=== PATIENT | female | born 1990 | race Caucasian/White ===

== ENCOUNTER 2016-11-05 12:36 | Inpatient (IN) | payer BC ==
[~2016-11-05] VITALS: Ht 175.3 cm; Wt 80.3 kg
[2016-11-12] MEDS ORDERED: LACTATED RINGER'S 1000 ML IV SCH (13:00)
[2016-11-12] MEDS ORDERED: LACTATED RINGER'S 1000 ML IV ONE (13:00)
[2016-11-12] MEDS ORDERED: CITRIC ACID-SODIUM CITRATE LIQ 30 ML UDC PO SCH (13:00)
[2016-11-12] MEDS ORDERED: ceFAZolin 1,000 MG/NS 100 ML IV SCH ×2 (13:00)
[2016-11-12 13:12] LABS: AUTOMATED NEUTROPHIL # 7.5 TH/MM3 (1.8-7.7); BASOPHIL % 0.3 % (0.0-2.0); EOSINOPHIL # 0.1 TH/MM3 (0-0.4); EOSINOPHIL % 0.6 % (0.0-4.0); HEMATOCRIT 36.6 % (35.0-46.0); HEMO FLAGS DIFF FINAL; LYMPH % 25.7 % (9.0-44.0); LYMPHOCYTE # 2.9 TH/MM3 (1.0-4.8); MEAN CORPUSCULAR HEMOGLOBIN 30.2 PG (27.0-34.0); MEAN CORPUSCULAR HGB CONC 33.2 % (32.0-36.0); MONO % 7.4 % (0.0-8.0); PLATELET COUNT 214 TH/MM3 (150-450); RED BLOOD COUNT 4.02 MIL/MM3 (4.00-5.30); WHITE BLOOD COUNT 11.3 TH/MM3 (4.0-11.0)
[2016-11-12 13:19] LABS: BACTERIA, URINE FEW /hpf; BLOOD, URINE NEG (NEG); GLUCOSE,URINE NEG (NEG); KETONE, URINE 10 mg/dL (NEG); MUCUS URINE FEW /lpf (OCC); NITRITE,URINE NEG (NEG); SQUAMOUS EPITHELIAL CELL URINE 7 /hpf (0-5); TRANSITIONAL EPI CELLS, URINE <1 /hpf; URINE COLOR YELLOW (YELLW/STRAW)
[2016-11-12 13:21] LABS: COMMENT (UR) CULT NOT INDICATED; CULTURE IF INDICATED CULT NOT INDICATED
[2016-11-12] MEDS ORDERED: CALNTAB (13:55)
[2016-11-12] MEDS ORDERED: FERR325T PO (13:57)
[2016-11-12] MEDS ORDERED: OXYTOCIN 10 UNIT/ML AMP ONE (13:58)
--- NOTE | 2016-11-12 14:18 | HHI.HP ---
HPI Chief Complaint for breech presentation. Date Seen: Nov 12, 2016 Travel History International Travel<30 Days: No Contact w/Intl Traveler<30Days: No History of Present Illness HPI Patient is a at 39-3/7 weeks gestation who presents today for scheduled primary for breech presentation. She denies any vaginal bleeding, discharge, gush or leaking of fluid. Positive movement. Patient did have an abnormal 1 hr GTT, but 3hr GTT was wnl. She is Rh negative and received Rhogam at 28 weeks gestation. History Past Medical History Medical History: Denies Significant Hx Obstetric History Obstetric History Past Surgical History Surgical History: No Previous Surgery Family History Family History: Negative Social History Alcohol Use: No Tobacco Use: No Substance Abuse: No Allergies-Medications (Allergen,Severity, Reaction): Coded Allergies: No Known Allergies (Unverified , 11/12/16) Home Meds Reported Medications Ferrous Sulfate 325 Mg [id number] Mg PO DAILY #30 TAB Ref 0 11/12/16 Vitamin (Calna)1 Tab Tab 11/12/16 Review of Systems Except as stated in HPI: all other systems reviewed are Neg General / Constitutional: No: Fever, Chills Eyes: No: Blurred Vision HENT: No: Headaches Cardiovascular: No: Chest Pain or Discomfort, Palpitations Respiratory: No: Short of Breath Gastrointestinal: No: Nausea, Abdominal Pain Genitourinary: No: Dysuria, Hematuria Skin: No Rash Psychiatric: No: Substance Abuse Physical Exam Narrative GENERAL: Well-nourished, well-developed patient. SKIN: Warm and dry. HEAD: Normocephalic and atraumatic. EYES: No scleral icterus. No injection or drainage. ENT: No nasal drainage noted. Mucous membranes pink. Airway patent. NECK: Supple, trachea midline. No JVD. CARDIOVASCULAR: Regular rate and rhythm without murmurs, gallops, or rubs. RESPIRATORY: Breath sounds equal bilaterally. No accessory muscle use. ABDOMEN/GI: Abdomen soft, non-tender, bowel sounds present, no rebound, no guarding Gravid to 39 weeks size GENITOURINARY: External Genitalia: intact and normal in appearance BUS glands: wnl Presentation: breech Membranes: intact Uterine Contractions: q5-8min FHT's: Category: I Baseline: 125 Reactive: + Variability: moderate Decels: none EXTREMITIES: No cyanosis or edema. BACK: Nontender without obvious deformity. No CVA tenderness. NEUROLOGICAL: Awake and alert. Motor and sensory grossly within normal limits. Normal speech. Data Data Vital Signs Reviewed: Yes Orders Lactated Ringer's 1000 Ml Inj (Lr 1000 M (11/12/16 13:00) Lactated Ringer's 1000 Ml Inj (Lr 1000 M (11/12/16 13:00) Citric Acid-Sodium Citrate Liq (Bicitra (11/12/16 13:00) Cefazolin Inj (Ancef Inj) (11/12/16 13:00) Code Status (11/12/16 12:54) Vital Signs (Adult) .ON ADMISSION (11/12/16 12:54) Activity Oob Ad Karin (11/12/16 12:54) ^ Heart (11/12/16 12:54) Urinary Catheter Management EDITH.Q8H (11/12/16 12:54) ^ Preps (11/12/16 12:54) Scd / Fahad / Foot Pump EDITH.QSHIFT (11/12/16 12:54) ^ Ultrasound For Locatio (11/12/16 12:54) Diet Npo (11/12/16 Lunch) Type And Screen (11/12/16 12:54) Complete Blood Count With Diff (11/12/16 12:54) Urinalysis - C+S If Indicated (11/12/16 12:54) Specimen To Be Collected PRN (11/12/16 12:54) Oxytocin Inj (Pitocin Inj) (11/12/16 13:58) Labs Laboratory Tests Test 11/12/16 12:25 White Blood Count 11.3 Red Blood Count 4.02 Hemoglobin 12.2 Hematocrit 36.6 Mean Corpuscular Volume 91.0 Mean Corpuscular Hemoglobin 30.2 Mean Corpuscular Hemoglobin 33.2 Concent Red Cell Distribution Width 14.0 Platelet Count 214 Mean Platelet Volume 11.2 Neutrophils (%) (Auto) 66.0 Lymphocytes (%) (Auto) 25.7 Monocytes (%) (Auto) 7.4 Eosinophils (%) (Auto) 0.6 Basophils (%) (Auto) 0.3 Neutrophils # (Auto) 7.5 Lymphocytes # (Auto) 2.9 Monocytes # (Auto) 0.8 Eosinophils # (Auto) 0.1 Basophils # (Auto) 0.0 CBC Comment DIFF FINAL Differential Comment Urine Color YELLOW Urine Turbidity HAZY Urine pH 6.0 Urine Specific [place] 1.021 Urine Protein 30 Urine Glucose (UA) NEG Urine Ketones 10 Urine Occult Blood NEG Urine Nitrite NEG Urine Bilirubin NEG Urine Urobilinogen LESS THAN 2.0 Urine Leukocyte Esterase LARGE Urine RBC 1 Urine WBC 7 Urine Squamous Epithelial 7 Cells Urine Transitional Epithelial <1 Cells Urine Bacteria FEW Urine Mucus FEW Microscopic Urinalysis Comment CULT NOT INDICATED Blood Type A NEGATIVE Antibody Screen NEGATIVE Assessment/Plan Assessment and Plan 26 year old at 39-3/7 weeks gestation. 1. IUP- Category I tracing, reassuring, continue routine obstetric care. 2. Breech presentation- primary scheduled today, breech presentation confirmed with bedside US on admission. 3. GBS negative. 4. Rh negative. sdw Vita Oden MD R2 Nov 12, 2016 14:17
[2016-11-12 16:14] VITALS: BP 116/77; PULSE 100; RESP 18; TEMP 98.1; O2SAT 96
[2016-11-12] MEDS ORDERED: ZOLPIDEM TARTRATE 5 MG TAB PO PRN (16:15)
[2016-11-12] MEDS ORDERED: OXYTOCIN 30 UNITS-500ML PREMIX 500 ML IV ONE (16:15)
[2016-11-12] MEDS ORDERED: SIMETHICONE 80 MG CHEWABLE TAB PO PRN (16:15)
[2016-11-12] MEDS ORDERED: ACETAMINOPHEN 325 MG TAB PO PRN (16:15)
[2016-11-12] MEDS ORDERED: oxyCODONE/ACETAMINOPHEN 5 MG/325 MG TAB PO PRN (16:15)
[2016-11-12] MEDS ORDERED: SODIUM CHLORIDE 0.9% FLUSH 5 ML FLUSH IV PRN (16:15)
[2016-11-12] MEDS ORDERED: ONDANSETRON HCL 4 MG/2 ML VIAL IV PUSH PRN (16:15)
[2016-11-12] MEDS ORDERED: MORPHINE SULFATE PF 5 MG/10 ML VIAL ONE (16:17)
[2016-11-12] MEDS ORDERED: LACTATED RINGER'S 1000 ML INJ 1,000 ML IV ONE (16:24)
[2016-11-12 16:30] VITALS: BP 120/78
[2016-11-12] MEDS ORDERED: OXYTOCIN 30 UNITS-500ML PREMIX 500 ML ONE (16:32)
[2016-11-12 16:47] VITALS: BP 115/80; PULSE 64
[2016-11-12 16:48] VITALS: RESP 18; O2SAT 99
[2016-11-12 17:01] VITALS: BP 113/81; PULSE 89; RESP 18; O2SAT 99
[2016-11-12 17:12] VITALS: BP 120/82; PULSE 71; RESP 18; TEMP 98; O2SAT 100
[2016-11-12] MEDS ORDERED: LACTATED RINGER'S 1000 ML INJ 1,000 ML IV SCH (21:00)
[2016-11-12] MEDS ORDERED: SODIUM CHLORIDE 0.9% FLUSH 5 ML FLUSH IV SCH (21:00)
[2016-11-13] MEDS ORDERED: OXYTOCIN 30 UNITS-500ML PREMIX 500 ML IV PRN (02:15)
[2016-11-13] MEDS: IBUPROFEN 600 MG TAB PO PRN ×3 (04:23→23:48)
[2016-11-13] MEDS: DOCUSATE SODIUM 50 MG/SENNA 8.6 MG TAB PO PRN ×2 (04:24→16:16)
[2016-11-13 05:55] LABS: AUTOMATED NEUTROPHIL # 8.3 TH/MM3 (1.8-7.7); BASOPHIL % 0.2 % (0.0-2.0); EOSINOPHIL % 0.3 % (0.0-4.0); HEMO FLAGS DIFF FINAL; LYMPH % 19.7 % (9.0-44.0); LYMPHOCYTE # 2.3 TH/MM3 (1.0-4.8); MEAN CELL VOLUME 89.8 FL (80.0-100.0); MEAN CORPUSCULAR HEMOGLOBIN 30.9 PG (27.0-34.0); MEAN CORPUSCULAR HGB CONC 34.4 % (32.0-36.0); MONO % 7.9 % (0.0-8.0); NEUT % 71.9 % (16.0-70.0); PLATELET COUNT 180 TH/MM3 (150-450); RED BLOOD COUNT 3.12 MIL/MM3 (4.00-5.30); RED CELL DISTRIBUTION WIDTH 14.1 % (11.6-17.2); WHITE BLOOD COUNT 11.5 TH/MM3 (4.0-11.0)
--- NOTE | 2016-11-13 08:27 | HHI.OB ---
Subjective Remarks Patient is a 26 year old POD#1 s/p primary for breech presentation. She is feeling well overall this morning. She has soreness with changing position, but has been able to get up and ambulate around the room. Her Hernandes catheter was removed earlier this morning and she is going to try voiding on her own. Vitals are stable, she remains afebrile. She denies any chest pain, shortness of breath, light-headedness, fever, chills, leg pain, nausea or vomiting. Objective Vitals/I&O Vital Signs Date Time Temp Pulse Resp B/P Pulse Ox O2 Delivery O2 Flow Rate FiO2 11/12/16 17:12 98.0 71 18 120/82 100 11/12/16 17:01 89 18 113/81 99 11/12/16 16:48 18 99 11/12/16 16:47 64 11/12/16 16:47 115/80 11/12/16 16:14 98.1 100 18 116/77 96 Result Diagram: 11/13/16 0545 Objective Remarks GENERAL: Well-nourished, well-developed patient. CARDIOVASCULAR: Regular rate and rhythm without murmurs, gallops, or rubs. RESPIRATORY: Breath sounds equal bilaterally. No accessory muscle use. ABDOMEN/GI: Abdomen soft, non-tender, bowel sounds present. Incision: Clean, dry and intact. Fundus: Firm, non-tender at umbilicus. GENITOURINARY: Light to moderate bleeding. EXTREMITIES: No cyanosis or edema, non-tender, without signs of DVT. Medications and IVs Current Medications Medications (Trade) Dose Ordered Sig/Ari Route Start Time Stop Time Status Last Admin (Lr 1000 ml Inj) 1,000 ml @ 100 mls/hr Q10H IV 11/12/16 21:00 11/13/16 16:59 (NS Flush) 2 ml BID IV 11/12/16 21:00 (NS Flush) 2 ml UNSCH PRN IV 11/12/16 16:15 11/12/16 22:01 (Mylicon Chew) 80 mg QID PRN PO 11/12/16 16:15 (Tylenol) 650 mg Q6H PRN PO 11/12/16 16:15 (Motrin) 600 mg Q6H PRN PO 11/12/16 16:15 11/13/16 04:23 (Percocet 5-325 Mg) 1 tab Q4H PRN PO 11/12/16 16:15 (Percocet 5-325 Mg) 2 tab Q4H PRN PO 11/12/16 16:15 (Linh-Colace) 2 tab Q12H PRN PO 11/12/16 16:15 11/13/16 04:24 (Ambien) 5 mg HS PRN PO 11/12/16 16:15 (M-M-R Ii Inj) 0.5 ml ONCE ONCE SQ 11/13/16 16:00 11/13/16 16:01 (Boostrix Inj) 0.5 ml ONCE ONCE IM 11/13/16 16:00 11/13/16 16:01 (Zofran Inj) 4 mg Q6H PRN IV PUSH 11/12/16 16:15 11/12/16 22:00 Assessment/Plan Assessment and Plan 26 year old POD #1 s/p primary for breech presentation. - Continue routine care. - Percocet and Motrin PRN pain. - Hgb dropped from 12.2 to 9.6 today, patient is asymptomatic. - Encouraged OOB. Advised pelvic rest for 6 wks. Will need a f/u appt. in 1 wk for incision check. - Rh negative, Infant negative as well, Rhogam not indicated dw Vita Oden MD R2 Nov 13, 2016 08:27
[2016-11-13] MEDS ORDERED: MEASLES, MUMPS, RUBELLA VACCINE 0.5 ML VIAL SQ ONE (16:00)
[2016-11-13] MEDS ORDERED: DIPHTH/TETANUS/ACEL PERTUSSIS (BOOSTER) 0.5 ML VIAL/PFS IM ONE (16:00)
[2016-11-13] MEDS: oxyCODONE/ACETAMINOPHEN 5 MG/325 MG TAB PO PRN ×2 (16:16→20:47)
[2016-11-14] MEDS ORDERED: IBUP-232 PO (08:42)
[2016-11-14] MEDS ORDERED: OXYC1TAB63 PO (08:42)
--- NOTE | 2016-11-14 08:57 | HHI.OB ---
Subjective Remarks Patient is a 26 year old POD#2 s/p primary for breech presentation. She is feeling well this morning. She notes minimal abdominal soreness and states that she has been able to ambulate, void and stool without difficulty. Vitals are stable, she remains afebrile. She denies any chest pain , shortness of breath, light-headedness, fever, chills, leg pain, nausea or vomiting. Objective Result Diagram: 11/13/16 1323 Objective Remarks GENERAL: Well-nourished, well-developed patient. CARDIOVASCULAR: Regular rate and rhythm without murmurs, gallops, or rubs. RESPIRATORY: Breath sounds equal bilaterally. No accessory muscle use. ABDOMEN/GI: Abdomen soft, non-tender, bowel sounds present. Incision: Clean, dry and intact. Fundus: Firm, non-tender at umbilicus. GENITOURINARY: Light to moderate bleeding. EXTREMITIES: No cyanosis or edema, non-tender, without signs of DVT. Medications and IVs Current Medications Medications (Trade) Dose Ordered Sig/Ari Route Start Time Stop Time Status Last Admin (NS Flush) 2 ml BID IV 11/12/16 21:00 (NS Flush) 2 ml UNSCH PRN IV 11/12/16 16:15 11/12/16 22:01 (Mylicon Chew) 80 mg QID PRN PO 11/12/16 16:15 (Tylenol) 650 mg Q6H PRN PO 11/12/16 16:15 (Motrin) 600 mg Q6H PRN PO 11/12/16 16:15 11/13/16 23:48 (Percocet 5-325 Mg) 1 tab Q4H PRN PO 11/12/16 16:15 11/13/16 20:47 (Percocet 5-325 Mg) 2 tab Q4H PRN PO 11/12/16 16:15 (Linh-Colace) 2 tab Q12H PRN PO 11/12/16 16:15 11/13/16 16:16 (Ambien) 5 mg HS PRN PO 11/12/16 16:15 (Zofran Inj) 4 mg Q6H PRN IV PUSH 11/12/16 16:15 11/12/16 22:00 Assessment/Plan Assessment and Plan 26 year old POD #2 s/p primary for breech presentation. - Continue routine care. - Percocet and Motrin PRN pain. - post-op Hgb 9.6, patient remains asymptomatic. - Encouraged OOB. Advised pelvic rest for 6 wks. Will need a f/u appt. in 1 wk for incision check. - Rh negative, Infant negative as well, Rhogam not indicated - Re: control, options discussed this morning, patient would like to consider her options. Vita Barahona Dr., MD R2 Nov 14, 2016 08:57
[2016-11-14] MEDS: IBUPROFEN 600 MG TAB PO PRN ×2 (09:59→17:37)
[2016-11-14] MEDS ORDERED: diphenhydrAMINE HCL 25 MG CAP PO PRN (20:15)
[2016-11-15] MEDS: IBUPROFEN 600 MG TAB PO PRN (00:04)
[2016-11-15 08:00] VITALS: BP 131/76; PULSE 91; RESP 18; TEMP 98.6
--- NOTE | 2016-11-15 11:47 | HHI.OB ---
Subjective Post Operative Day: 3 Objective Vitals/I&O Vital Signs Date Time Temp Pulse Resp B/P Pulse Ox O2 Delivery O2 Flow Rate FiO2 11/15/16 08:00 98.6 91 18 131/76 Result Diagram: 11/13/16 0545 Objective Remarks GENERAL: Well-nourished, well-developed patient. CARDIOVASCULAR: Regular rate and rhythm without murmurs, gallops, or rubs. RESPIRATORY: Breath sounds equal bilaterally. No accessory muscle use. ABDOMEN/GI: Abdomen soft, non-tender, bowel sounds present. Incision: Clean, dry and intact, steri strips dry, some bruising under incision Fundus: Firm, non-tender at umbilicus. GENITOURINARY: Light to moderate bleeding. EXTREMITIES: No cyanosis or edema, non-tender, without signs of DVT. Medications and IVs Current Medications Medications (Trade) Dose Ordered Sig/Ari Route Start Time Stop Time Status Last Admin (NS Flush) 2 ml BID IV 11/12/16 21:00 (NS Flush) 2 ml UNSCH PRN IV 11/12/16 16:15 11/12/16 22:01 (Mylicon Chew) 80 mg QID PRN PO 11/12/16 16:15 (Tylenol) 650 mg Q6H PRN PO 11/12/16 16:15 (Motrin) 600 mg Q6H PRN PO 11/12/16 16:15 11/15/16 00:04 (Percocet 5-325 Mg) 1 tab Q4H PRN PO 11/12/16 16:15 11/13/16 20:47 (Percocet 5-325 Mg) 2 tab Q4H PRN PO 11/12/16 16:15 (Linh-Colace) 2 tab Q12H PRN PO 11/12/16 16:15 11/13/16 16:16 (Ambien) 5 mg HS PRN PO 11/12/16 16:15 (Zofran Inj) 4 mg Q6H PRN IV PUSH 11/12/16 16:15 11/12/16 22:00 (Benadryl) 25 mg Q4H PRN PO 11/14/16 20:15 11/14/16 20:23 Assessment/Plan Problem List: (1) Anemia Plan: pp daily iron (2) S/P primary low transverse Plan: routine Assessment and Plan 26 year old POD #3 s/p primary for breech presentation. pt doing well - Continue routine care. - pain managed well with oral pain medication - bonding with Discharge Planning dc home today Melanie Salvador Nov 15, 2016 11:47
--- NOTE | 2016-11-15 11:50 | HHI.DS ---
Admission Date Nov 12, 2016 at 12:02 Discharge Date: Nov 15, 2016 Admitting Diagnosis term breech presentation Diagnosis: (1) S/P primary low transverse Diagnosis: Principal (2) Anemia Diagnosis: Secondary Delivery Date: Nov 12, 2016 : Primary Reason: breech Infant: Male Brief History Patient is a at 39-3/7 weeks gestation who presents today for scheduled primary for breech presentation. She denies any vaginal bleeding, discharge, gush or leaking of fluid. Positive movement. Patient did have an abnormal 1 hr GTT, but 3hr GTT was wnl. She is Rh negative and received Rhogam at 28 weeks gestation. Hospital Course routine Pt Condition on Discharge: Good Discharge Disposition: Discharge Home Discharge Instructions Diet Instructions: As Tolerated, No Restrictions Additional Diet Instructions: Drink at least 8 - 16 oz bottles of water a day Activities You Can Perform: Shower Only-No Bath Activities to Avoid: Prolonged Standing, Strenuous Activity, Sexual Activity Additional Activity Instruc.: No driving until off pain medications Do not lift anything heavier than your baby in an infant carrier Follow up Referrals: [employer] - 1 Week @ [facility] New Medications: Ibuprofen (Ibuprofen) 600 Mg Tab 600 MG PO Q6H Pain Management #30 TAB Oxycodone-Acetaminophen (Oxycodone-Acetaminophen) 5-325 mg Tab 1 TAB PO Q4H moderate pain #30 TAB Continued Medications: Vitamin (Calna) 1 Tab Tab Discontinued Medications: Ferrous Sulfate (Ferrous Sulfate) 325 Mg Tab 325 MG PO DAILY Nutritional Supplement #30 Ref 0 TAB Melanie Salvador Nov 15, 2016 11:50
--- NOTE | 2016-11-15 11:54 | HHI.DCPOC ---
Discharge Care Plan Diagnosis: (1) S/P primary low transverse (2) Anemia Your Health Problems Are: delivery Report Symptoms to Your Doctor -Temperate above 100.5 degrees -Redness, of incision or excessive or foul smelling drainage -Unusual pain or calf pain -Increased vaginal bleeding -Painful or difficulty urinating -Feelings of extreme sadness or anxiety after 2 weeks Goals to Promote Your Health * To prevent worsening of your condition and complications * To maintain your health at the optimal level Directions to Meet Your Goals Take your medications as prescribed Follow your dietary instruction Follow activity as directed Ensure plenty of rest for recovery Drink fluids for hydration Keep your appointments as scheduled Take your immunizations and boosters as scheduled If your symptoms worsen call your PCP, if no PCP go to Urgent Care Center or Emergency Room Smoking is Dangerous to Your Health. Avoid second hand smoke Call the 24-hour crisis hotline for domestic abuse at Melanie Salvador Nov 15, 2016 11:54
--- NOTE | 2016-11-15 17:55 | MP ---
cc: Mariaelena NICOLAS MD DATE OF SURGERY: 11/12/2016 PREOPERATIVE DIAGNOSIS: 1. Intrauterine at 39+ weeks 2. Breech presentation. POSTOPERATIVE DIAGNOSIS 1. Intrauterine at 39+ weeks 2. Breech presentation. PROCEDURE: Primary low transverse section. ANESTHESIA: Spinal. SURGEON Eliana Nicolas MD. COSURGEON: MD Mariely R2 FINDINGS: Normal uterus, tubes and ovaries. Viable male with good 's. COMPLICATIONS None. COUNTS: Counts correct. ESTIMATED BLOOD LOSS: Estimated blood loss was 600 cc. FLUIDS: Crystalloids. The patient tolerated the procedure well and recovery room in good condition. PROCEDURE IN DETAIL Under an adequate level of anesthesia, she was prepped and draped for abdominal surgery. A Pfannenstiel incision was made and carried down to the fascia. The fascia was taken off the rectus muscle by blunt and sharp dissection. The rectus muscles were spread bluntly and the peritoneum was entered under direct vision without difficulty. The incision was extended with care to avoid the urinary bladder. A bladder blade was placed and a bladder flap created in the usual fashion. The uterine incision was made in a transverse manner along the lower uterine segment which was not well-developed. It was taken down in the midline until the intrauterine cavity was entered. A large amount of clear fluid was noted. The breech was grasped and delivered without difficulty. The legs were delivered and the thorax was delivered. The arms were reduced bilaterally without difficulty. With gentle fundal pressure the vertex was delivered without difficulty and the hypopharynx and nasopharynx were suctioned. The cord doubly clamped and cut and the handed to the resuscitation team present. The placenta was delivered manually. The uterus was curettaged twice with a wet lap and irrigated with a large amount of fluid. The uterine incision was then repaired with 2-0 Vicryl in a running locking fashion, with the second layer imbricating the first. Hemostasis was excellent. The cul-de-sac and gutters were cleaned of blood and debris. The uterus was delivered back into the abdomen. The rectus muscles were reapproximated with 0 Vicryl in interrupted fashion. The fascia was repaired from lateral to midline with 0 Vicryl and the Subcu was repaired with 3-0 Vicryl. The skin was repaired with a 4-0 Vicryl in a subcuticular manner. The wound was sterilely dressed. She tolerated the procedure well and went to the recovery room in satisfactory condition. R. MD FLO Man/janay /9:56 PM /5:47 PM
== END 2016-11-15 12:55 | disposition home or self-care (01) | DRG 766 ==
LOC: H2EB 11-12 12:02 → H1EA 11-12 17:16
PROVIDERS: ADMIT Obstetrics & Gynecology; ATTEND Obstetrics & Gynecology
PROC: 10D00Z1 Extraction of Products of Conception, Low, Open Approach (ICD-10-PCS; principal; 2016-11-12)
DX: O32.1XX0 Maternal care for breech presentation, not applicable or unspecified (principal); D64.9 Anemia, unspecified; O99.02 Anemia complicating childbirth; Z3A.39 39 weeks gestation of pregnancy; Z37.0 Single live birth
CPT/HCPCS: 59025; 81001; 85025; 86850; 86900; 86901; 90707; 90715; J0690; J2274; J2405; J2590; J7120

== ENCOUNTER 2018-03-05 14:40 | Inpatient (IN) | payer BC ==
[~2018-03-05] VITALS: Ht 175.3 cm; Wt 78.9 kg
[~2018-03-05 14:40] MED LIST: CALNTAB; IBUP-232 PO; OXYC1TAB63 PO
[2018-03-05] MEDS ORDERED: LACTATED RINGER'S 1000 ML INJ 1,000 ML IV ONE (15:15)
--- NOTE | 2018-03-05 15:56 | HHI.HP ---
HPI Chief Complaint Repeat Date Seen: March 05, 2018 Travel History International Travel<30 Days: No Contact w/Intl Traveler<30Days: No History of Present Illness HPI Patient is a 27 year old at 39-1/7 weeks gestation who presents today for repeat . She denies any vaginal bleeding or discharge. No gush or leaking of fluid. She is not feeling any contractions. Positive movement. No complications with . History Past Medical History Medical History: Denies Significant Hx Obstetric History Obstetric History for breech presentation in 2017 Past Surgical History Narrative Surgical Cholecystectomy Ear Surgery Family History Family History: Negative Social History Alcohol Use: No Tobacco Use: No Substance Abuse: No Allergies-Medications (Allergen,Severity, Reaction): Coded Allergies: No Known Allergies (Verified Allergy, Unknown, 03/05/18) Home Meds Discontinued Reported Medications Vitamin (Calna) 1 Tab Tab 11/12/16 Discontinued Scripts Oxycodone-Acetaminophen (Oxycodone-Acetaminophen) 5-325 mg Tab, 1 TAB PO Q4H for moderate pain, #30 TAB Prov:Mariaelena Nicolas MD 11/14/16 Ibuprofen (Ibuprofen) 600 Mg Tab, 600 MG PO Q6H for Pain Management, #30 TAB Prov:Mariaelena Nicolas MD 11/14/16 Review of Systems Except as stated in HPI: all other systems reviewed are Neg General / Constitutional: No: Fever, Chills Eyes: No: Visual changes HENT: No: Headaches Cardiovascular: No: Chest Pain or Discomfort Respiratory: No: Short of Breath Gastrointestinal: No: Nausea, Abdominal Pain Genitourinary: No: Pelvic Pain, Discharge, Vaginal Bleeding Musculoskeletal: No: Edema Neurologic: No: Headache Psychiatric: No: Substance Abuse Physical Exam Narrative GENERAL: Well-nourished, well-developed patient. SKIN: Warm and dry. HEAD: Normocephalic and atraumatic. EYES: No scleral icterus. No injection or drainage. ENT: No nasal drainage noted. Mucous membranes pink. Airway patent. NECK: Supple, trachea midline. No JVD. CARDIOVASCULAR: Regular rate and rhythm without murmurs, gallops, or rubs. RESPIRATORY: Breath sounds equal bilaterally. No accessory muscle use. ABDOMEN/GI: Abdomen soft, non-tender, bowel sounds present, no rebound, no guarding Gravid to 39 weeks size GENITOURINARY: Membranes: intact Uterine Contractions: q3-4min FHT's: Category: I Baseline: 140 Reactive: + Variability: moderate Decels: none EXTREMITIES: No cyanosis or edema. BACK: Nontender without obvious deformity. NEUROLOGICAL: Awake and alert. Motor and sensory grossly within normal limits. Normal speech. Caprini VTE Risk Assessment Caprini VTE Risk Assessment: No/Low Risk (score <= 1) Caprini Risk Assessment Model Point Value = 1 Point Value = 2 Point Value = 3 Point Value = 5 Age 41-60 Minor surgery BMI > 25 kg/m2 Swollen legs Varicose veins or History of unexplained or recurrent spontaneous Oral contraceptives or hormone replacement Sepsis (< 1 month) Serious lung disease, including pneumonia (< 1 month) Abnormal pulmonary function Acute myocardial infarction Congestive heart failure (< 1 month) History of inflammatory bowel disease Medical patient at bed rest Age 61-74 Arthroscopic surgery Major open surgery (> 45 min) Laparoscopic surgery (> 45 min) Malignancy Confined to bed (> 72 hours) Immobilizing plaster cast Central venous access Age >= 75 History of VTE Family history of VTE Factor V Leiden Prothrombin [id number] Lupus anticoagulant Anticardiolipin antibodies Elevated serum homocysteine Heparin-induced thrombocytopenia Other congenital or acquired thrombophilia Stroke (< 1 month) Elective arthroplasty Hip, pelvis, or leg fracture Acute spinal cord injury (< 1 month) Prophylaxis Regimen Total Risk Factor Score Risk Level Prophylaxis Regimen 0-1 Low Early ambulation 2 Moderate Order ONE of the following: *Sequential Compression Device (SCD) *Heparin 5000 units SQ BID 3-4 Higher Order ONE of the following medications: *Heparin 5000 units SQ TID *Enoxaparin/Lovenox 40 mg SQ daily (WT < 150 kg, CrCl > 30 mL/min) *Enoxaparin/Lovenox 30 mg SQ daily (WT < 150 kg, CrCl > 10-29 mL/min) *Enoxaparin/Lovenox 30 mg SQ BID (WT < 150 kg, CrCl > 30 mL/min) AND/OR *Sequential Compression Device (SCD) 5 or more Highest Order ONE of the following medications: *Heparin 5000 units SQ TID (Preferred with Epidurals) *Enoxaparin/Lovenox 40 mg SQ daily (WT < 150 kg, CrCl > 30 mL/min) *Enoxaparin/Lovenox 30 mg SQ daily (WT < 150 kg, CrCl > 10-29 mL/min) *Enoxaparin/Lovenox 30 mg SQ BID (WT < 150 kg, CrCl > 30 mL/min) AND *Sequential Compression Device (SCD) Data Data Vital Signs Reviewed: Yes Orders Orders Admit To Inpatient (03/05/18 ) Code Status (03/05/18 15:07) Vital Signs (Adult) .ON ADMISSION (03/05/18 15:07) Activity Oob Ad Karin (03/05/18 15:07) Heart (03/05/18 15:07) Urinary Catheter Management EDITH.Q8H (03/05/18 15:07) ^ Preps (03/05/18 15:07) Scd / Fahad / Foot Pump EDITH.QSHIFT (03/05/18 15:07) ^ Ultrasound For Locatio (03/05/18 15:07) Diet Npo (03/05/18 Dinner) Type And Screen (03/05/18 15:07) Complete Blood Count With Diff (03/05/18 15:07) Urinalysis - C+S If Indicated (03/05/18 15:07) Drug Screen, Random Urine (03/05/18 15:07) Lactated Ringer's 1000 Ml Inj (Lr 1000 M (03/05/18 15:15) Lactated Ringer's 1000 Ml Inj (Lr 1000 M (03/05/18 15:45) Cefazolin 2 Gm Premix (Ancef 2 Gm Premix (03/05/18 16:15) Citric Acid-Sodium Citrate Liq (Bicitra (03/05/18 16:45) Group B Strep: Negative Assessment/Plan Assessment and Plan 27 year old at 39-1/7 weeks gestation. 1. IUP- Category I tracing, reassuring. 2. Repeat . 3. GBS negative. Vita Barahona Dr., MD R3 March 05, 2018 15:56
[2018-03-05 15:59] LABS: AUTOMATED NEUTROPHIL # 6.9 TH/MM3 (1.8-7.7); BASOPHIL % 0.2 % (0.0-2.0); EOSINOPHIL # 0.1 TH/MM3 (0-0.4); EOSINOPHIL % 0.8 % (0.0-4.0); HEMATOCRIT 35.8 % (35.0-46.0); LYMPH % 22.7 % (9.0-44.0); LYMPHOCYTE # 2.3 TH/MM3 (1.0-4.8); MEAN CELL VOLUME 89.9 FL (80.0-100.0); MEAN CORPUSCULAR HEMOGLOBIN 30.1 PG (27.0-34.0); MEAN CORPUSCULAR HGB CONC 33.5 % (32.0-36.0); MEAN PLATELET VOLUME 9.7 FL (7.0-11.0); MONO % 8.1 % (0.0-8.0); MONOCYTE # 0.8 TH/MM3 (0-0.9); NEUT % 68.2 % (16.0-70.0); PLATELET COUNT 282 TH/MM3 (150-450); RED BLOOD COUNT 3.98 MIL/MM3 (4.00-5.30); RED CELL DISTRIBUTION WIDTH 14.2 % (11.6-17.2); WHITE BLOOD COUNT 10.1 TH/MM3 (4.0-11.0)
[2018-03-05] MEDS ORDERED: LACTATED RINGER'S 1000 ML INJ 1,000 ML IV SCH ×2 (16:00→22:48)
[2018-03-05 16:13] LABS: BACTERIA, URINE RARE /hpf; BILIRUBIN, URINE NEG (NEG); BLOOD, URINE NEG (NEG); GLUCOSE,URINE NEG (NEG); KETONE, URINE 10 mg/dL (NEG); MUCUS URINE FEW /lpf (OCC); NITRITE,URINE NEG (NEG); SQUAMOUS EPITHELIAL CELL URINE 1 /hpf (0-5); URINE COLOR YELLOW (YELLW/STRAW); URINE LEUKOCYTE ESTERASE NEG (NEG)
[2018-03-05] MEDS ORDERED: ceFAZolin 2 GM PREMIX 50 ML IV SCH (16:15)
[2018-03-05] MEDS ORDERED: MORPHINE SULFATE PF 5 MG/10 ML VIAL ONE (16:41)
[2018-03-05] MEDS ORDERED: CITRIC ACID-SODIUM CITRATE LIQ 30 ML UDC PO SCH (16:45)
[2018-03-05] MEDS ORDERED: DOCUSATE SODIUM 50 MG/SENNA 8.6 MG TAB PO PRN (18:00)
[2018-03-05] MEDS ORDERED: ONDANSETRON HCL 4 MG/2 ML VIAL IV PUSH PRN (18:00)
[2018-03-05] MEDS ORDERED: ACETAMINOPHEN 325 MG TAB PO PRN (18:00)
[2018-03-05] MEDS ORDERED: ZOLPIDEM TARTRATE 5 MG TAB PO PRN (18:00)
[2018-03-05] MEDS ORDERED: CEFAZOLIN INJ 2,000 MG in SODIUM CHLORIDE 0.9% INJ 100 ML IV SCH (18:00)
[2018-03-05] MEDS ORDERED: ONDANSETRON ODT 4 MG TAB PO PRN (18:00)
[2018-03-05] MEDS ORDERED: oxyCODONE/ACETAMINOPHEN 5 MG/325 MG TAB PO PRN ×2 (18:00)
[2018-03-05] MEDS ORDERED: OXYTOCIN 30 UNITS-500ML PREMIX 500 ML IV ONE (18:00)
[2018-03-05] MEDS ORDERED: SIMETHICONE 80 MG CHEWABLE TAB PO PRN (18:00)
[2018-03-05] MEDS ORDERED: SODIUM CHLORIDE 0.9% FLUSH 10 ML FLUSH IV FLUSH PRN (18:00)
[2018-03-05] MEDS: IBUPROFEN 600 MG TAB PO PRN (20:01)
[2018-03-05 20:34] VITALS: BP 127/77; PULSE 79; RESP 18; TEMP 98.3
[2018-03-05] MEDS ORDERED: SODIUM CHLORIDE 0.9% FLUSH 10 ML FLUSH IV FLUSH SCH (21:00)
[2018-03-05] MEDS ORDERED: OXYTOCIN 30 UNITS-500ML PREMIX 500 ML IV PRN (23:00)
[2018-03-06 00:01] VITALS: BP 117/66; PULSE 73; RESP 17; TEMP 98.6
[2018-03-06] MEDS: ceFAZolin 2 GM/DEX PREMIX 50 ML IV SCH ×2 (00:45→08:54)
[2018-03-06 04:02] VITALS: BP 98/56; PULSE 81; RESP 18; TEMP 99
[2018-03-06] MEDS: IBUPROFEN 600 MG TAB PO PRN ×3 (05:13→18:53)
[2018-03-06 05:59] LABS: AUTOMATED NEUTROPHIL # 10.4 TH/MM3 (1.8-7.7); BASOPHIL % 0.2 % (0.0-2.0); EOSINOPHIL % 0.1 % (0.0-4.0); HEMATOCRIT 31.5 % (35.0-46.0); HEMOGLOBIN 10.7 GM/DL (11.6-15.3); LYMPH % 16.9 % (9.0-44.0); LYMPHOCYTE # 2.4 TH/MM3 (1.0-4.8); MEAN CELL VOLUME 91.5 FL (80.0-100.0); MEAN CORPUSCULAR HEMOGLOBIN 31.2 PG (27.0-34.0); MONO % 8.1 % (0.0-8.0); MONOCYTE # 1.1 TH/MM3 (0-0.9); NEUT % 74.7 % (16.0-70.0); PLATELET COUNT 221 TH/MM3 (150-450); RED BLOOD COUNT 3.44 MIL/MM3 (4.00-5.30); RED CELL DISTRIBUTION WIDTH 14.1 % (11.6-17.2)
[2018-03-06] MEDS ORDERED: OXYC1TAB63 PO (08:21)
[2018-03-06] MEDS ORDERED: IBUP-232 PO (08:21)
--- NOTE | 2018-03-06 08:55 | HHI.DCPOC ---
Discharge Care Plan Diagnosis: (1) Status post repeat low transverse section (2) Anemia Your Health Problems Are: delivery Additional Problems take daily oral iron once you are no longer taking pain medication Report Symptoms to Your Doctor -Temperature above 100.5 degrees -Redness, of incision or excessive or foul smelling drainage -Unusual pain or calf pain -Increased vaginal bleeding -Painful or difficulty urinating -Feelings of extreme sadness or anxiety after 2 weeks Goals to Promote Your Health * To prevent worsening of your condition and complications * To maintain your health at the optimal level Directions to Meet Your Goals Take your medications as prescribed Follow your dietary instruction Follow activity as directed Ensure plenty of rest for recovery Drink fluids for hydration Keep your appointments as scheduled Take your immunizations and boosters as scheduled If your symptoms worsen call your PCP, if no PCP go to Urgent Care Center or Emergency Room Smoking is Dangerous to Your Health. Avoid second hand smoke Call the 24-hour crisis hotline for domestic abuse at Melanie Salvador March 06, 2018 08:55
--- NOTE | 2018-03-06 09:09 | HHI.OB ---
Subjective Post Operative Day: 1 Objective Vitals/I&O Vital Signs Date Time Temp Pulse Resp B/P (MAP) Pulse Ox O2 Delivery O2 Flow Rate FiO2 03/06/18 04:02 99.0 81 18 98/56 (70) 03/06/18 00:01 98.6 73 17 117/66 (83) 03/05/18 20:34 98.3 79 18 127/77 (94) Result Diagram: 03/06/18 0505 Objective Remarks GENERAL: Well-nourished, well-developed patient. CARDIOVASCULAR: Regular rate and rhythm without murmurs, gallops, or rubs. RESPIRATORY: Breath sounds equal bilaterally. No accessory muscle use. ABDOMEN/GI: Abdomen soft, non-tender, bowel sounds present. Incision: dressing, Clean, dry and intact. Fundus: Firm, non-tender at umbilicus. GENITOURINARY: Light to moderate bleeding. EXTREMITIES: No cyanosis or edema, non-tender, without signs of DVT. Medications and IVs Current Medications Medications (Trade) Dose Ordered Sig/Ari Route Start Time Stop Time Status Last Admin Lactated Ringer's 1,000 ml @ 100 mls/hr Q10H IV 03/05/18 22:48 03/06/18 18:47 03/06/18 00:49 Oxytocin 500 ml @ 100 mls/hr UNSCH X1 PRN IV 03/05/18 23:00 03/06/18 22:59 (NS Flush) 2 ml BID IV FLUSH 03/05/18 21:00 (NS Flush) 2 ml UNSCH PRN IV FLUSH 03/05/18 18:00 (Mylicon Chew) 80 mg QID PRN PO 03/05/18 18:00 (Tylenol) 650 mg Q6H PRN PO 03/05/18 18:00 (Motrin) 600 mg Q6H PRN PO 03/05/18 18:00 03/06/18 05:13 (Percocet 5-325 Mg) 1 tab Q4H PRN PO 03/05/18 18:00 (Percocet 5-325 Mg) 2 tab Q4H PRN PO 03/05/18 18:00 (Linh-Colace) 2 tab Q12H PRN PO 03/05/18 18:00 (Ambien) 5 mg HS PRN PO 03/05/18 18:00 (M-M-R Ii Inj) 0.5 ml ONCE ONCE SQ 03/06/18 16:00 03/06/18 16:01 (Boostrix Inj) 0.5 ml ONCE ONCE IM 03/06/18 16:00 03/06/18 16:01 (Zofran Odt) 4 mg Q6H PRN PO 03/05/18 18:00 Cefazolin Sodium/ Dextrose 50 ml @ 100 mls/hr Q8H IV 03/06/18 01:00 03/06/18 09:29 03/06/18 08:54 Assessment/Plan Problem List: (1) Status post repeat low transverse section ICD Codes: Z98.891 - History of uterine scar from previous surgery (2) Anemia ICD Codes: D64.9 - Anemia, unspecified Status: Acute Qualifiers: Assessment and Plan 39-week repeat c section POD #1 pt doing well breast feeding and bonding with infant pain well managed with oral pain medication pt to shower today routine care Discharge Planning consider dc home tomorrow Melanie Salvador March 06, 2018 09:08
[2018-03-06] MEDS ORDERED: DIPHTH/TETANUS/ACEL PERTUSSIS (BOOSTER) 0.5 ML VIAL/PFS IM ONE (16:00)
[2018-03-06] MEDS ORDERED: MEASLES, MUMPS, RUBELLA VACCINE 0.5 ML VIAL SQ ONE (16:00)
[2018-03-07] MEDS: IBUPROFEN 600 MG TAB PO PRN ×2 (01:20→07:57)
--- NOTE | 2018-03-07 10:38 | HHI.OB ---
Subjective Post Operative Day: 2 Remarks feeling well nursing moving bowels and bladder no complaints Objective Result Diagram: 03/06/18 0504 Objective Remarks GENERAL: Well-nourished, well-developed patient. CARDIOVASCULAR: Regular rate and rhythm without murmurs, gallops, or rubs. RESPIRATORY: Breath sounds equal bilaterally. No accessory muscle use. ABDOMEN/GI: Abdomen soft, non-tender, bowel sounds present. Incision: dressing, Clean, dry and intact. Fundus: Firm, non-tender at umbilicus. GENITOURINARY: Light to moderate bleeding. EXTREMITIES: No cyanosis or edema, non-tender, without signs of DVT. Medications and IVs Current Medications Medications (Trade) Dose Ordered Sig/Ari Route Start Time Stop Time Status Last Admin (NS Flush) 2 ml BID IV FLUSH 03/05/18 21:00 (NS Flush) 2 ml UNSCH PRN IV FLUSH 03/05/18 18:00 (Mylicon Chew) 80 mg QID PRN PO 03/05/18 18:00 (Tylenol) 650 mg Q6H PRN PO 03/05/18 18:00 (Motrin) 600 mg Q6H PRN PO 03/05/18 18:00 03/07/18 07:57 (Percocet 5-325 Mg) 1 tab Q4H PRN PO 03/05/18 18:00 (Percocet 5-325 Mg) 2 tab Q4H PRN PO 03/05/18 18:00 (Linh-Colace) 2 tab Q12H PRN PO 03/05/18 18:00 03/07/18 01:20 (Ambien) 5 mg HS PRN PO 03/05/18 18:00 (Zofran Odt) 4 mg Q6H PRN PO 03/05/18 18:00 Assessment/Plan Problem List: (1) Status post repeat low transverse section ICD Codes: Z98.891 - History of uterine scar from previous surgery (2) Anemia ICD Codes: D64.9 - Anemia, unspecified Status: Acute Qualifiers: Assessment and Plan 39-week repeat c section POD #1 pt doing well breast feeding and bonding with pain well managed with oral pain medication pt to shower today routine care Discharge written for Friday but can stay if needs to counseled on post depression, risk of post pre eclampsia, DVT and to call with any questions circ to be done in office Discharge Planning consider dc home tomorrow Rosa Can MD March 07, 2018 10:38
--- NOTE | 2018-03-09 07:26 | MP ---
cc: Mariaelena Nicolas MD DATE OF OPERATION: 03/05/2018 PREOPERATIVE DIAGNOSES: 1. Intrauterine at 39+ weeks. 2. Previous section, desires repeat. POSTOPERATIVE DIAGNOSES: 1. Intrauterine at 39+ weeks. 2. Previous section, desires repeat. PROCEDURE PERFORMED: Repeat low transverse section. ANESTHESIA: Spinal. SURGEON: EZRA Nicolas MD SYSTEM DISPATCHER: Antonette Lange MD FINDINGS: A 9 pound , Apgars 8 and 9, normal tubes, normal ovaries, normal uterus. COMPLICATIONS: None. COUNTS: Correct. ESTIMATED BLOOD LOSS: 500 mL FLUIDS: Crystalloids. The patient tolerated the procedure well, went to the recovery room in good condition. PROCEDURE IN DETAIL: The patient was taken to the operating room identified by name band and verbally. She was given a spinal anesthetic. A Hernandes catheter was inserted. She was prepped and draped for section. The old Pfannenstiel incision was removed and excised completely and the incision was taken down to the fascia. The fascia was taken off the rectus muscle by blunt and sharp dissection. The peritoneum was entered under direct vision without complication. The incision was extended with care to avoid the urinary bladder. A bladder blade was placed and a bladder flap created over the lower uterine segment which was well-developed. The uterus was then scored in a transverse manner along the lower uterine segment and taken down in the midline until the uterine cavity was entered. The incision was extended with the surgeon's fingers. The vertex was grasped and delivered through the incision without difficulty. The hypopharynx and nasopharynx were suctioned. The remainder of the infant was delivered. The cord was doubly clamped and cut and the handed to the resuscitation team that was present. Cord blood was obtained. The placenta was delivered manually without difficulty. The uterus was curetted twice with a wet lap. The uterine incision was repaired with 2-0 Vicryl a running locking fashion, the second layer imbricating the first. The cul-de-sac and gutters were cleaned of blood and debris with a large amount of irrigation. The uterus was delivered back into the abdomen. The incision was again inspected and was hemostatic. The rectus muscles were reapproximated with 0 Vicryl in an interrupted fashion. The fascia was repaired with 0 Vicryl from lateral to midline bilaterally in a running fashion. The subcutaneous tissue was repaired with 3-0 Vicryl. The skin was repaired with 4-0 Monocryl in a subcuticular manner. Steri-Strips were applied. The wound was sterilely dressed. She tolerated the procedure well and went to the recovery room in good condition. R. MD FLO Man/YUAN , 05:50 PM , 06:10 PM
== END 2018-03-07 12:15 | disposition home or self-care (01) | DRG 766 ==
LOC: H2EB 14:40 → H1EA 19:21
PROVIDERS: ADMIT Obstetrics & Gynecology; ATTEND Obstetrics & Gynecology
PROC: 10D00Z1 Extraction of Products of Conception, Low, Open Approach (ICD-10-PCS; principal; 2018-03-05)
DX: O34.219 Maternal care for unspecified type scar from previous cesarean delivery (principal); O99.03 Anemia complicating the puerperium; D64.9 Anemia, unspecified; Z37.0 Single live birth; Z3A.39 39 weeks gestation of pregnancy
CPT/HCPCS: 80307; 81001; 85025; 85461; 86850; 86900; 86901; 90384; 90715; J0690; J2274; J2590; J2790; J7120